=== PATIENT | male | born 1995 | race American Indian/Alaskan Native ===

== ENCOUNTER 2018-05-12 22:01 | Inpatient (IN) | payer MEDICAID ==
--- NOTE | 2018-05-12 22:37 | C.PDOC ---
History Of Present Illness 23 yr old male w/ no ppmhx p/w abdominal pain. Pt notes abdominal pain started this morning upon awakening, throbbing, periumbilical, without radiation, first time occurrence. No constipation or diarrhea or back pain. No dark or bloody stool. x1 episode of vomiting. No fever, chills or night sweats. No trauma or fall. No chest pain or shortness of breath. No headache or neck stiffness. Did not take any pain meds for the pain. No other complaints Time Seen by Provider: 05/12/18 22:36 Chief Complaint (Nursing): Abdominal Pain Past Medical History Vital Signs: Last Vital Signs Temp 97.4 F L 05/12/18 22:25 Pulse 48 L 05/12/18 22:25 Resp 24 05/12/18 22:25 BP 146/95 H 05/12/18 22:25 Pulse Ox 100 05/12/18 22:25 Family History: States: Unknown Family Hx - Social History Hx Alcohol Use: No Hx Substance Use: No - Immunization History Hx Tetanus Toxoid Vaccination: No Hx Influenza Vaccination: No Hx Pneumococcal Vaccination: No Review Of Systems Constitutional: Negative for: Fever, Chills, Sweats, Weakness, Malaise, Weight loss Eyes: Negative for: Pain, Vision Change, Conjunctivae Inflammation, Eyelid Inflammation ENT: Negative for: Ear Pain, Ear Discharge, Nose Pain, Nose Discharge, Nose Congestion, Mouth Pain, Mouth Swelling, Throat Pain Cardiovascular: Negative for: Chest Pain, Palpitations, Orthopnea, Paroxysmal Noc. Dyspnea, Edema Respiratory: Negative for: Cough, Shortness of Breath Gastrointestinal: Positive for: Nausea, Vomiting, Abdominal Pain. Negative for: Diarrhea, Constipation, Melena, Hematochezia, Hematemesis Genitourinary: Negative for: Dysuria, Frequency, Incontinence, Hematuria, Penile Discharge, Scrotal Pain, Rash Skin: Negative for: Rash, Lesions, Jaundice Neurological: Negative for: Confusion, Headache Psych: Negative for: Anxiety, Depression, Psychosis, Suicidal ideation Physical Exam - Physical Exam Appears: Well, Non-toxic, No Acute Distress Skin: Normal Color, Warm Head: Atraumatic, Normacephalic Eye(s): bilateral: Normal Inspection, PERRL, EOMI Ear(s): Bilateral: Normal Nose: Normal, No Flaring, No Discharge Oral Mucosa: Moist Tongue: Normal Appearing, No Swelling, No Lesions Lips: Normal Appearing Gingiva: Normal Appearing, No Erythema, No Ulceration Throat: Normal, No Erythema, No Exudate Neck: Normal, Normal ROM, Supple, Other (no meningeal signs) Chest: Symmetrical Cardiovascular: Rhythm Regular Respiratory: Normal Breath Sounds Gastrointestinal/Abdominal: Soft, Tenderness (periumbilical), No Mass, No Distention, No Guarding Back: Normal Inspection, No CVA Tenderness, No Vertebral Tenderness Extremity: Normal ROM, No Tenderness Extremity: Bilateral: Atraumatic Neurological/Psych: Oriented x3, Normal Speech, Normal Cognition Gait: Steady ED Course And Treatment - Laboratory Results Result Diagrams: 05/12/18 23:27 O2 Sat by Pulse Oximetry: 100 Medical Decision Making Medical Decision Makin yr old male p/w periumbilical pain. No guarding on exam, no peritoneal signs. No fall or trauma. No urinary complaints or recent sexual activity or hx of stds. No testicular pain. No back pain. WIll rule out appdx w/ ct. Pending imaging and labs 0025 Labs largely unremarkable, pending cbc, imaging 0100 pt in NAD, signed out to Dr. Mooney pending imaging, dispo Disposition - Disposition Disposition Time: 00:42 Condition: STABLE Forms: [employer] ([place]iboutian) - Clinical Impression Clinical Impression: Abdominal pain
[2018-05-12] MEDS ORDERED: Sodium Chloride 0.9% 1,000 ML IV ONE (22:53)
[2018-05-12] MEDS ORDERED: Sodium Chloride 0.9% 1,000 ML ONE (23:01)
[2018-05-12 23:45] LABS: ALB/GLOB RATIO 1.9 (1.0-2.1); ALBUMIN 4.8 g/dL (3.5-5.0); ALT/SGPT 10 U/L (21-72); AST/SGOT 29 U/L (17-59); BLOOD UREA NITROGEN 16 mg/dL (9-20); CALCIUM 8.8 mg/dl (8.6-10.4); GFR NON-AFRICAN AMERICAN > 60; LIPASE 28 U/L (23-300); SQUAMOUS EPITHIAL < 1 /hpf (0-5); URINE BILIRUBIN NEGATIVE (NEGATIVE); URINE BLOOD NEGATIVE (NEGATIVE); URINE CLARITY Clear (Clear); URINE GLUCOSE (UA) NORMAL (Normal); URINE LEUKOCYTE ESTERASE NEG Leu/uL (Negative); URINE PROTEIN 2+ mg/dL (NEGATIVE)
[2018-05-12 23:48] LABS: URINE COLOR YELLOW (YELLOW)
[2018-05-13 00:46] LABS: BASO % 0.2 % (0.0-2.0); EOS % 0.1 % (0.0-4.0); HEMOGLOBIN 14.9 g/dL (12.0-18.0); LYMPH % 6.6 % (20.0-40.0); MEAN CELL VOLUME 93.1 fL (80.0-94.0); MEAN CORPUSCULAR HEMOGLOBIN 31.3 pg (27.0-31.0); MEAN CORPUSCULAR HGB CONC 33.7 g/dL (33.0-37.0); MEAN PLATELET VOLUME 8.8 fL (7.2-11.7); MONO # 0.6 K/uL (0.0-0.8); MONO % 3.6 % (0.0-10.0); NEUT # 14.2 K/uL (1.8-7.0); NEUT % 89.5 % (50.0-75.0); PLATELET COUNT 244 K/uL (130-400); RBC 4.74 Mil/uL (4.40-5.90); RED CELL DISTRIBUTION WIDTH 14.1 % (11.5-14.5); WHITE BLOOD COUNT 15.9 K/uL (4.8-10.8)
[2018-05-13] MEDS ORDERED: Iodixanol 320 MG/ML 100 ML BOTTLE IV ONE (00:57)
[2018-05-13 01:34] LABS: BANDS 1 % (0-2); LYMPHOCYTE 5 % (20-40); MONOCYTE 6 % (0-10); NEUTROPHIL 88 % (50-75); TOTAL CELLS COUNTED 100
[2018-05-13 01:35] LABS: PLATELET ESTIMATE NORMAL (NORMAL)
[2018-05-13] MEDS ORDERED: Piperacillin/Tazobact 3.375 gm 100 ML IVPB STA (01:48)
[2018-05-13] MEDS ORDERED: Piperacillin/Tazobact 3.375 gm 100 ML IVPB ONE (02:04)
--- NOTE | 2018-05-13 02:41 | CP.PCM.HP ---
History of Present Illness - History of Present Illness History of Present Illness: General Surgery - Dr. Whitman 23 yo M w no PMH who presents w/ periumbilical abdominal pain since yesterday afternoon. Pt states that he began to notice abdominal pain shortly after lunch and thought it was from the sandwich he ate. He describes it as dull aching pain, periumbilical, 6/10, non-radiating, since then has some migration towards the RLQ. He also had associated nausea and vomited 1x small amount of water. He denies any Fevers/Chills,SOB/Chest pain, Diarrhea/Constipation, Dysuria/Hematuria. Pt states he's never had this pain before PMH: denies PSH: broken nose repaired No medications NKDA No Tobacco, No ETOH, Smokes Marijuana, Denies other drug use Present on Admission - Present on Admission Any Indicators Present on Admission: No Review of Systems - Review of Systems All systems: reviewed and no additional remarkable complaints except (as per HPI) Past Patient History - Past Social History Smoking Status: Never Smoked - PSYCHIATRIC Hx Substance Use: No - SURGICAL HISTORY Hx Surgeries: No - ANESTHESIA Hx Anesthesia: No Meds Allergies/Adverse Reactions: Allergies Allergy/AdvReac Type Severity Reaction Status Date / Time No Known Allergies Allergy Verified 05/12/18 22:28 Physical Exam - Constitutional Appears: Well, No Acute Distress - Head Exam Head Exam: ATRAUMATIC, NORMAL INSPECTION, NORMOCEPHALIC - Eye Exam Eye Exam: Normal appearance - ENT Exam ENT Exam: Mucous Membranes Dry - Respiratory Exam Respiratory Exam: NORMAL BREATHING PATTERN. absent: Respiratory Distress - Cardiovascular Exam Cardiovascular Exam: REGULAR RHYTHM - GI/Abdominal Exam GI & Abdominal Exam: Soft, Tenderness (rlq). absent: Distended, Firm, Guarding, Hernia, Rebound, Rigid - Neurological Exam Neurological exam: Alert, Oriented x3 - Psychiatric Exam Psychiatric exam: Normal Affect, Normal Mood - Skin Skin Exam: Dry, Intact Results - Vital Signs Recent Vital Signs: Last Vital Signs Temp 98.3 F 05/13/18 02:36 Pulse 72 05/13/18 01:17 Resp 18 05/13/18 01:17 BP 143/74 05/13/18 01:17 Pulse Ox 99 05/13/18 01:17 - Labs Result Diagrams: 05/12/18 23:27 05/12/18 23:27 Labs: Laboratory Results - last 24 hr 05/12/18 05/12/18 05/12/18 23:27 23:27 23:27 WBC 15.9 H RBC 4.74 Hgb 14.9 Hct 44.1 MCV 93.1 MCH 31.3 H MCHC 33.7 RDW 14.1 Plt Count 244 MPV 8.8 Neut % (Auto) 89.5 H Lymph % (Auto) 6.6 L [place] % (Auto) 3.6 Eos % (Auto) 0.1 Baso % (Auto) 0.2 Neut # (Auto) 14.2 H Lymph # (Auto) 1.0 [place] # (Auto) 0.6 Eos # (Auto) 0.0 Baso # (Auto) 0.0 Neutrophils % (Manual) 88 H Band Neutrophils % 1 Lymphocytes % (Manual) 5 L Monocytes % (Manual) 6 Platelet Estimate Normal Sodium 138 Potassium 3.8 Chloride 104 Carbon Dioxide 22 Anion Gap 16 BUN 16 Creatinine 0.9 Est GFR ( Amer) > 60 Est GFR (Non-Af Amer) > 60 Random Glucose 98 Calcium 8.8 Total Bilirubin 1.2 AST 29 ALT 10 L Alkaline Phosphatase 51 Total Protein 7.3 Albumin 4.8 Globulin 2.6 Albumin/Globulin Ratio 1.9 Lipase 28 Urine Color Yellow Urine Clarity Clear Urine pH 5.0 Ur Specific [place] 1.035 H Urine Protein 2+ H Urine Glucose (UA) Normal Urine Ketones 2+ H Urine Blood Negative Urine Nitrate Negative Urine Bilirubin Negative Urine Urobilinogen 2.0 Ur Leukocyte Esterase Neg Urine WBC (Auto) 5 Urine RBC (Auto) 3 Ur Squamous Epith Cells < 1 - Imaging and Cardiology CT scan - abdomen Status: Image reviewed by me, Report reviewed by me Assessment & Plan - Assessment and Plan (Free Text) Assessment: 23 yo M w/ acute appendicitis -Admit to surgical service, Dr. Whitman -NPO -IVF NS @150 -IV Abx - Zosyn -Pain control, anti-emetics prn -SCDs -OR this morning for lap appendectomy Dw Dr J Carlos Samuel PGY4
[2018-05-13] MEDS: Sodium Chloride 0.9% 1,000 ML IV SCH ×4 (03:00→21:53)
[2018-05-13] MEDS: Morphine 4 MG/ML VIAL IVP PRN ×2 (05:32→10:14)
[2018-05-13] MEDS: Piperacill/Tazo 3.375gm in Dex 3.375 GM/50 ML BAG IVPB SCH ×3 (07:57→19:38)
--- NOTE | 2018-05-13 10:31 | CT ---
Date of service: 05/13/2018 PROCEDURE: CT Abdomen and Pelvis with contrast HISTORY: rlq pain/ periumbilical pain COMPARISON: None available. TECHNIQUE: Contrast dose: 100 mL Visipaque 320 IV Radiation dose: Total exam DLP = 427.26 mGy-cm. This CT exam was performed using one or more of the following dose reduction techniques: Automated exposure control, adjustment of the mA and/or kV according to patient size, and/or use of iterative reconstruction technique. FINDINGS: Examination limited by paucity of intra-abdominal/intrapelvic fat. LOWER THORAX: No visible consolidation, pleural effusion, or pneumothorax. LIVER: Unremarkable. GALLBLADDER AND BILE DUCTS: Unremarkable. PANCREAS: Unremarkable. SPLEEN: Unremarkable. ADRENALS: Unremarkable. KIDNEYS AND URETERS: The kidneys enhance symmetrically. No hydronephrosis or obstructing calculus identified. VASCULATURE: No aortic aneurysm. No atherosclerotic calcification or mural plaque present. BOWEL: Stomach is nondistended. Lack of oral contrast limits evaluation for bowel pathology. Bowel loops appear within normal limits of caliber without evidence of obstruction. APPENDIX: The appendix appears enlarged measuring approximately 1.1 cm with an appendicolith present. PERITONEUM: No significant free fluid. No definite free air. LYMPH NODES: No bulky adenopathy identified. BLADDER: Unremarkable. REPRODUCTIVE: Unremarkable. BONES: Bilateral L5 spondylolysis. Approximately 6 mm anterolisthesis of L5 on S1. OTHER FINDINGS: None. IMPRESSION: The appendix appears enlarged measuring approximately 1.1 cm with an appendicolith present. Appearance concerning for acute appendicitis; correlate clinically including white blood cell count and physical exam. Preliminary impression was provided by [employer].
[2018-05-13] MEDS ORDERED: Midazolam 2 MG/2 ML VIAL ONE (14:52)
[2018-05-13] MEDS ORDERED: Propofol 10 mg/ml Inj (20 ML) ONE (14:52)
[2018-05-13] MEDS ORDERED: Lidocaine Hydrochloride 5 ML INJ ONE (14:53)
[2018-05-13] MEDS ORDERED: Bupivacaine 0.25% 20 ML INJ IJ ONE (15:21)
[2018-05-13] MEDS ORDERED: Lidocaine/Epinephrine 1% 1:100000 10 ML IJ ONE (15:21)
[2018-05-13] MEDS ORDERED: Neostigmine 1:1000 (1 mg/ml) Inj ONE (15:39)
[2018-05-13] MEDS ORDERED: HYDROmorphone 0.5 mg/0.5 ml ISec IVP PRN (16:20)
--- NOTE | 2018-05-13 16:33 | PCM.SURG1 ---
Surgeon's Initial Post Op Note - Surgeon's Notes Surgeon: Dr. Whitman Melting Furnace Skimmer: Dr. Elizabeth PGY3 Type of Anesthesia: General Endo Pre-Operative Diagnosis: acute appendicitis Operative Findings: see dictation Post-Operative Diagnosis: same Operation Performed: laparscopic appendectomy Specimen/Specimens Removed: appendix Estimated Blood Loss: EBL {In ML}: 10 Blood Products Given: N/A Drains Used: No Drains Post-Op Condition: Good Date of Surgery/Procedure: 05/13/18 Time of Surgery/Procedure: 16:32
[2018-05-13] MEDS ORDERED: Sodium Chloride 0.9% 1,000 ML IV ONE (17:20)
[2018-05-13 18:42] VITALS: RESP 20
[2018-05-14 00:53] VITALS: O2SAT 99
[2018-05-14] MEDS: Piperacill/Tazo 3.375gm in Dex 3.375 GM/50 ML BAG IVPB SCH ×2 (01:00→07:34)
[2018-05-14] MEDS: Sodium Chloride 0.9% 1,000 ML IV SCH ×2 (05:00→11:19)
--- NOTE | 2018-05-14 06:00 | OP ---
PROCEDURE DATE: 05/13/2018 PREOPERATIVE DIAGNOSES: 1. Acute appendicitis. 2. Abdominal pain. POSTOPERATIVE DIAGNOSES: 1. Acute suppurative appendicitis. 2. Pelvic abscess. PROCEDURE PERFORMED: 1. Laparoscopic appendectomy. 2. Laparoscopic drainage of pelvic abscess. SURGEON: Asif Whitman MD OFFICE MACHINE SERVICER: Radha Elizabeth DO, PGY-3 resident. ANESTHESIA: General endotracheal tube anesthesia. ESTIMATED BLOOD LOSS: Around 10 mL. DRAINS: None. PATHOLOGY: Appendix was sent for the pathology. COMPLICATIONS: None. INTRAOPERATIVE FINDINGS: The patient had acute suppurative appendicitis with pelvic abscess. DESCRIPTION OF PROCEDURE: On intraoperative steps, this is a 23-year-old male, who was diagnosed with acute appendicitis and abdominal pain, and the patient was consented for laparoscopic appendectomy, possible open, brought to the OR, placed supine on operating table. After induction of the anesthesia, the abdomen was prepped and draped in the usual sterile fashion. A supraumbilical transverse incision was made using open technique. Peritoneal cavity was entered. Pneumo was created. Another two ports were placed, a 5 mm as well as a 12-mm port, in the left lower quadrant and the suprapubic region. Grasper and dissector were introduced. Appendix was identified. The mesoappendix was resected with harmonic scalpel. Base of the appendix was resected with RAFA and the proper hemostasis was achieved. There was a big pelvic abscess that was drained, and after proper drainage of pelvic abscess, the suction irrigation of the pelvis was done and remaining abscess cavity as well as the blood was suctioned out, and after proper hemostasis, all the ports were taken out under vision. Pneumo was deflated. Umbilical port site was closed in two layers, the fascia with 0 Vicryl interrupted sutures, skin with 4-0 Monocryl and dry sterile dressing was applied. The patient tolerated procedure well. Count of instrument and gauze was correct. There was no apparent complication. The patient was extubated in OR, sent to the postanesthesia care unit in stable condition. Asif Whitman MD
[2018-05-14 07:55] VITALS: BP 140/89; PULSE 74; TEMP 97.6
[2018-05-14 08:23] LABS: HEMOGLOBIN 13.9 g/dL (12.0-18.0); MEAN CELL VOLUME 93.3 fL (80.0-94.0); MEAN CORPUSCULAR HEMOGLOBIN 31.8 pg (27.0-31.0); MEAN CORPUSCULAR HGB CONC 34.1 g/dL (33.0-37.0); MEAN PLATELET VOLUME 8.9 fL (7.2-11.7); RBC 4.37 Mil/uL (4.40-5.90); RED CELL DISTRIBUTION WIDTH 14.1 % (11.5-14.5); WHITE BLOOD COUNT 8.1 K/uL (4.8-10.8)
--- NOTE | 2018-05-14 12:46 | CP.PCM.DIS ---
Provider - Provider Date of Admission: 05/13/18 02:15 Attending physician: Asif Whitman MD Time Spent in preparation of Discharge (in minutes): 40 Hospital Course - Lab Results Lab Results: Most Recent Lab Values WBC 8.1 K/uL (4.8-10.8) 05/14/18 08:10 RBC 4.37 Mil/uL (4.40-5.90) L 05/14/18 08:10 Hgb 13.9 g/dL (12.0-18.0) 05/14/18 08:10 Hct 40.7 % (35.0-51.0) 05/14/18 08:10 MCV 93.3 fL (80.0-94.0) 05/14/18 08:10 MCH 31.8 pg (27.0-31.0) H 05/14/18 08:10 MCHC 34.1 g/dL (33.0-37.0) 05/14/18 08:10 RDW 14.1 % (11.5-14.5) 05/14/18 08:10 Plt Count 215 K/uL (130-400) 05/14/18 08:10 MPV 8.9 fL (7.2-11.7) 05/14/18 08:10 Neut % (Auto) 89.5 % (50.0-75.0) H 05/12/18 23: Lymph % (Auto) 6.6 % (20.0-40.0) L 05/12/18 23: [place] % (Auto) 3.6 % (0.0-10.0) 05/12/18 23: Eos % (Auto) 0.1 % (0.0-4.0) 05/12/18 23:27 Baso % (Auto) 0.2 % (0.0-2.0) 05/12/18 23:27 Neut # (Auto) 14.2 K/uL (1.8-7.0) H 05/12/18 23:27 Lymph # (Auto) 1.0 K/uL (1.0-4.3) 05/12/18 23:27 [place] # (Auto) 0.6 K/uL (0.0-0.8) 05/12/18 23:27 Eos # (Auto) 0.0 K/uL (0.0-0.7) 05/12/18 23:27 Baso # (Auto) 0.0 K/uL (0.0-0.2) 05/12/18 23: Neutrophils % (Manual) 88 % (50-75) H 05/12/18 23: Band Neutrophils % 1 % (0-2) 05/12/18 23: Lymphocytes % (Manual) 5 % (20-40) L 05/12/18 23: Monocytes % (Manual) 6 % (0-10) 05/12/18 23: Platelet Estimate Normal (NORMAL) 05/12/18 23: Sodium 138 mmol/L (132-148) 05/12/18 23: Potassium 3.8 mmol/L (3.6-5.2) 05/12/18: Chloride 104 mmol/L (98-107) 05/12/18 23: Carbon Dioxide 22 mmol/L (22-30) 05/12/18 23: Anion Gap 16 (10-20) 05/12/18 23: BUN 16 mg/dL (9-20) 05/12/18 23: Creatinine 0.9 mg/dL (0.8-1.5) 05/12/18 23: Est GFR ( Amer) > 60 05/12/18 23: Est GFR (Non-Af Amer) > 60 05/12/18: Random Glucose 98 mg/dL (75-110) 05/12/18: Calcium 8.8 mg/dl (8.6-10.4) 05/12/18: Total Bilirubin 1.2 mg/dL (0.2-1.3) 05/12/18 23: AST 29 U/L (17-59) 05/12/18: ALT 10 U/L (21-72) L 05/12/18: Alkaline Phosphatase 51 U/L (38-126) 05/12/18 23: Total Protein 7.3 g/dL (6.3-8.3) 05/12/18: Albumin 4.8 g/dL (3.5-5.0) 05/12/18: Globulin 2.6 gm/dL (2.2-3.9) 05/12/18 23: Albumin/Globulin Ratio 1.9 (1.0-2.1) 05/12/18 23: Lipase 28 U/L (23-300) 05/12/18 23: Urine Color Yellow (YELLOW) 05/12/18 23: Urine Clarity Clear (Clear) 05/12/18: Urine pH 5.0 (5.0-8.0) 05/12/18: Ur Specific [place] 1.035 (1.003-1.030) H 05/12/18 23: Urine Protein 2+ mg/dL (NEGATIVE) H 05/12/18: Urine Glucose (UA) Normal mg/dL (Normal) 05/12/18 Urine Ketones 2+ mg/dL (NEGATIVE) H 05/12/18: Urine Blood Negative (NEGATIVE) 05/12/18: Urine Nitrate Negative (NEGATIVE) 05/12/18: Urine Bilirubin Negative (NEGATIVE) 05/12/18 Urine Urobilinogen 2.0 mg/dL (0.2-1.0) 05/12/18 23: Ur Leukocyte Esterase Neg [place]/uL (Negative) 05/12/18: Urine WBC (Auto) 5 /hpf (0-5) 05/12/18: Urine RBC (Auto) 3 /hpf (0-3) 05/12/18 23:27 Ur Squamous Epith Cells < 1 /hpf (0-5) 05/12/18:27 - Hospital Course Hospital Course: On admission: 23 yo M with no medical history who presents with periumbilical abdominal pain since yesterday afternoon. Pt states that he began to notice abdominal pain shortly after lunch and thought it was from the sandwich he ate. He describes it as dull aching pain, periumbilical, 6/10, non-radiating, since then has some migration towards the RLQ. He also had associated nausea and vomited 1x small amount of water. He denies any Fevers/Chills,SOB/Chest pain, Diarrhea/Constipation, Dysuria/Hematuria. Pt states he's never had this pain before Hospital course: Patient was admitted for acute appendicitis. Patient underwent laparoscopic appendectomy on 05/13/18. He was treated with NS IV fluids, Zosyn, Zofran, Toradol and Tramadol during his hospital stay. Prior to discharge, patient was able to to tolerate breakfast without nausea or vomiting, passing flatus, with improvement in abdominal pain. Imaging: CT abdomen/pelvis: The appendix appears enlarged measuring approximately 1.1 cm with an appendicolith present. Appearance concerning for acute appendicitis. Discharge instructions: Please follow up with Dr. Whitman in office 7-10 days. Please call to make an appointment Follow up with PMD in 7-10 days Pt may take Tylenol/Ibuprofen as needed for pain Pt may remove outer bandages tomorrow however leave white steristrips in place, they will fall off on their own Pt may shower tomorrow however do not soak or scrub incisions No pools, tubs, or baths No heavy lifting for 4-6weeks, nothing greater than 10lbs No abdominal exercises (crunches) until cleared by Dr. Whitman No dietary restrictions Call Dr. Whitman/Return to the ED if Fever >101, pain, redness, swelling, drainage from incisions Discharge Exam - Head Exam Head Exam: ATRAUMATIC, NORMAL INSPECTION, NORMOCEPHALIC - Eye Exam Eye Exam: EOMI, PERRL - ENT Exam ENT Exam: Mucous Membranes Moist - Neck Exam Neck exam: Full Rom - Respiratory Exam Respiratory Exam: NORMAL BREATHING PATTERN. absent: Rales, Rhonchi, Wheezes - Cardiovascular Exam Cardiovascular Exam: REGULAR RHYTHM - GI/Abdominal Exam GI & Abdominal Exam: Normal Bowel Sounds, Soft. absent: Distended, Guarding, Rigid Additional comments: Dressing clean, dry, intact. - Extremities Exam Extremities exam: pedal pulses present - Neurological Exam Neurological exam: Alert, Oriented x3 - Psychiatric Exam Psychiatric exam: Normal Affect, Normal Mood Discharge Plan - Follow Up Plan Condition: IMPROVED Disposition: HOME/ ROUTINE Instructions: How to Prevent Surgical Site Infections, Appendectomy, Laparoscopic Surgery Additional Instructions: Please follow up with Dr. Whitman in office 7-10 days. Please call to make an appointment Follow up with PMD in 7-10 days Pt may take Tylenol/Ibuprofen as needed for pain Pt may remove outer bandages tomorrow however leave white steristrips in place, they will fall off on their own Pt may shower tomorrow however do not soak or scrub incisions No pools, tubs, or baths No heavy lifting for 4-6weeks, nothing greater than 10lbs No abdominal exercises (crunches) until cleared by Dr. Whitman No dietary restrictions Call Dr. Whitman/Return to the ED if Fever >101, pain, redness, swelling, drainage from incisions Referrals: Asif Whitman MD [Staff Provider] -
[2018-05-15] MEDS ORDERED: Influenza Vaccine 60 mcg/0.5 mL SYR (4YR UP) IM ONE (10:00)
[2018-05-15] MEDS ORDERED: Pneumococcal 23-Valent Vaccine IM ONE (10:00)
== END 2018-05-14 12:07 | disposition home or self-care (01) | DRG 883 ==
LOC: C.ER 22:01 → C.3T 05-13 02:15
PROVIDERS: ADMIT Surgery Surgical Critical Care; ATTEND Surgery Surgical Critical Care
PROC: 0W9G4ZZ Drainage of Peritoneal Cavity, Percutaneous Endoscopic Approach (ICD-10-PCS; 2018-05-13)
PROC: 0DTJ4ZZ Resection of Appendix, Percutaneous Endoscopic Approach (ICD-10-PCS; principal; 2018-05-13 10:00)
DX: K35.33 Acute appendicitis with perforation, localized peritonitis, and gangrene, with abscess (principal); K38.1 Appendicular concretions